=== PATIENT | female | born 1965 | race Caucasian/White ===

== ENCOUNTER → 2020-09-03 | Outpatient (CLI) | payer OTHER ==
[~2020-09-03] MED LIST: ACETAMINOPHEN-1 EAC1 PO; ADVAIR 250-501 EACH INH; CERTAVITE-ANTI1 EACH PO; CLARITIN10 MG PO; COZAAR100 MG PO; CYCLOBENZAPRINE5 MG PO; FLONASE 0.05% N16 GM; HYDROCHLOROTHIA25 MG PO; LIPITOR40 MG PO; LO-DOSE ASPIRIN81 MG PO; MELATONIN10 M2 PO; MOBIC7.5 MG PO; NEURONTIN100 MG PO; OMEPRAZOLE20 M1 PO; VENTOLIN HFA 66.7 GM INH
== END ==
LOC: KOH-I 08-31 16:00
DX: M51.16 Intervertebral disc disorders with radiculopathy, lumbar region (principal); M47.26 Other spondylosis with radiculopathy, lumbar region; M48.061 Spinal stenosis, lumbar region without neurogenic claudication
CPT/HCPCS: 72131

== ENCOUNTER → 2020-11-11 | Outpatient (CLI) | payer OTHER ==
[2020-11-11 11:30] LABS: HEMOGLOBIN 13.9 gm/dl (12.3-15.3); RED BLOOD COUNT 4.32 M/UL (4.00-5.10); WHITE BLOOD COUNT 9.2 K/UL (4.5-11.0)
[2020-11-11 11:57] LABS: BUN/CREATININE RATIO 14 (0-10)
== END ==
LOC: EDSTATUS 10:00 → OPSV2 10:00
PROVIDERS: Orthopaedic Surgery
DX: Z01.818 Encounter for other preprocedural examination (principal); M47.26 Other spondylosis with radiculopathy, lumbar region; M43.16 Spondylolisthesis, lumbar region; R91.8 Other nonspecific abnormal finding of lung field
CPT/HCPCS: 36415; 71046; 80048; 81001; 85027; 85610; 85730; 87081; 87086

== ENCOUNTER 2020-11-15 05:34 | Inpatient (IN) | payer OTHER ==
[~2020-11-15] VITALS: Ht 162.6 cm; Wt 73.5 kg
[~2020-11-15 05:34] MED LIST changes: -CLARITIN10 MG PO; -COZAAR100 MG PO; -CYCLOBENZAPRINE5 MG PO; -HYDROCHLOROTHIA25 MG PO; -LIPITOR40 MG PO; -LO-DOSE ASPIRIN81 MG PO; -MELATONIN10 M2 PO; -MOBIC7.5 MG PO; -NEURONTIN100 MG PO; -OMEPRAZOLE20 M1 PO
[2020-11-15 14:38] LABS: RED BLOOD COUNT 3.61 M/UL (4.00-5.10); WHITE BLOOD COUNT 16.3 K/UL (4.5-11.0)
[2020-11-15 14:41] LABS: HEMOGLOBIN 11.7 gm/dl (12.3-15.3)
[2020-11-15 14:54] LABS: BUN/CREATININE RATIO 13 (0-10)
[2020-11-15] MEDS ORDERED: LO-DOSE ASPIRIN81 MG PO (15:44)
[2020-11-15] MEDS ORDERED: CLARITIN10 MG PO (15:44)
[2020-11-15] MEDS ORDERED: CYCLOBENZAPRINE5 MG PO (15:44)
[2020-11-15] MEDS ORDERED: HYDROCHLOROTHIA25 MG PO (15:45)
[2020-11-15] MEDS ORDERED: NEURONTIN100 MG PO (15:45)
[2020-11-15] MEDS ORDERED: LIPITOR40 MG PO (15:45)
[2020-11-15] MEDS ORDERED: COZAAR100 MG PO (15:46)
[2020-11-15] MEDS ORDERED: MELATONIN10 M2 PO (15:46)
[2020-11-15] MEDS ORDERED: MOBIC7.5 MG PO (15:47)
[2020-11-15] MEDS ORDERED: OMEPRAZOLE20 M1 PO (15:47)
[2020-11-16 05:13] LABS: WHITE BLOOD COUNT 15.8 K/UL (4.5-11.0)
[2020-11-16 05:31] LABS: HEMOGLOBIN 8.9 gm/dl (12.3-15.3); RED BLOOD COUNT 2.75 M/UL (4.00-5.10)
[2020-11-16 05:38] LABS: BUN/CREATININE RATIO 18 (0-10)
[2020-11-17 03:36] LABS: HEMOGLOBIN 9.1 gm/dl (12.3-15.3); RED BLOOD COUNT 2.82 M/UL (4.00-5.10); WHITE BLOOD COUNT 13.3 K/UL (4.5-11.0)
[2020-11-17 04:00] LABS: BUN/CREATININE RATIO 20 (0-10)
--- NOTE | 2020-11-17 14:45 | NUR ---
PATIENT DRAIN PULLED AT THIS TIME WITH A NEW DRESSING APPLIED. PATIENT TOLERATED WELL. SURGICAL INCISION HAS NO S/S OF INFECTION OR INFLAMMATION OR BLEEDING. PATIENT GIVEN WOUND CARE INSTRUCTION AND VERBALIZED UNDERSTANDING.
== END 2020-11-17 14:42 | disposition home or self-care (01) | DRG 454 ==
LOC: OR 05:34 → CCU 14:52 → OR 15:12 → CCU 15:12 → MED SURG 4 11-16 16:11
PROVIDERS: Physician Assistant; ADMIT Orthopaedic Surgery
PROC: 00NY0ZZ Release Lumbar Spinal Cord, Open Approach (ICD-10-PCS; 2020-11-15)
PROC: 01NB0ZZ Release Lumbar Nerve, Open Approach (ICD-10-PCS; 2020-11-15)
PROC: 0SB20ZZ Excision of Lumbar Vertebral Disc, Open Approach (ICD-10-PCS; 2020-11-15)
PROC: 0SG00AJ Fusion of Lumbar Vertebral Joint with Interbody Fusion Device, Posterior Approach, Anterior Column, Open Approach (ICD-10-PCS; 2020-11-15)
PROC: 0SG00A0 Fusion of Lumbar Vertebral Joint with Interbody Fusion Device, Anterior Approach, Anterior Column, Open Approach (ICD-10-PCS; principal; 2020-11-15 07:30)
PROC: 0SG3071 Fusion of Lumbosacral Joint with Autologous Tissue Substitute, Posterior Approach, Posterior Column, Open Approach (ICD-10-PCS; 2020-11-15 07:30)
DX: M43.16 Spondylolisthesis, lumbar region (principal); D62 Acute posthemorrhagic anemia; M48.061 Spinal stenosis, lumbar region without neurogenic claudication; M54.16 Radiculopathy, lumbar region; E78.5 Hyperlipidemia, unspecified; Z20.822 Contact with and (suspected) exposure to COVID-19; I11.9 Hypertensive heart disease without heart failure; K21.9 Gastro-esophageal reflux disease without esophagitis; Z89.112 Acquired absence of left hand; Z87.891 Personal history of nicotine dependence; Z80.9 Family history of malignant neoplasm, unspecified; Z85.3 Personal history of malignant neoplasm of breast; Z79.82 Long term (current) use of aspirin
CPT/HCPCS: 36415; 72100; 72110; 76000; 80048; 85025; 85027; 86850; 86900; 86901; 94640; 94664; 94760; 97116-GP-CQ; 97161; 97166; 97535; C1713; C1762; J0690; J1040; J1100; J1170; J1885; J2001; J2250; J2370; J2405; J2704; J2710; J3010; J3370; J7040; J7050; J7120

== ENCOUNTER → 2022-02-09 | Outpatient (CLI) | payer OTHER ==
[~2022-02-09] MED LIST changes: +CLARITIN10 MG PO; +COZAAR100 MG PO; +CYCLOBENZAPRINE5 MG PO; +HYDROCHLOROTHIA25 MG PO; +LIPITOR40 MG PO; +LO-DOSE ASPIRIN81 MG PO; +MELATONIN10 M2 PO; +MOBIC7.5 MG PO; +NEURONTIN100 MG PO; +OMEPRAZOLE20 M1 PO
== END ==
LOC: KOH-I 02-07 13:45
DX: M51.16 Intervertebral disc disorders with radiculopathy, lumbar region (principal); M43.16 Spondylolisthesis, lumbar region; Z95.1 Presence of aortocoronary bypass graft; M48.061 Spinal stenosis, lumbar region without neurogenic claudication
CPT/HCPCS: 72148